=== PATIENT | female | born 1990 | race Caucasian/White ===

== ENCOUNTER 2017-03-23 10:36 | Emergency (ER) | payer MEDICAID ==
[~2017-03-23] VITALS: Ht 149.9 cm; Wt 44.8 kg
[~2017-03-23 10:36] MED LIST: DICY10CA88 PO; ESOM40CA PO; HYDR-569 PO; NITR100C6 PO; OMEP40CA37 PO; ONDA4TAB59 PO; ONDA8TAB9 PO; PHEN-873 PO
[2017-03-23 11:14] LABS: BASOPHILS % (AUTO) 0.3 % (0-1); EOSINOPHILS # (AUTO) 0.5 X10'3 (0-0.9); EOSINOPHILS % (AUTO) 4.6 % (0-6); HEMATOCRIT 41.6 % (35.0-45.0); LYMPHOCYTES # (AUTO) 1.9 X10'3 (1.1-4.8); MEAN CORPUSCULAR HEMOGLOBIN 29.2 PG (27.0-31.0); MEAN CORPUSCULAR HGB CONC 33.6 % (33.0-36.5); MEAN PLATELET VOLUME 7.7 FL (7.4-10.4); MONOCYTES # (AUTO) 0.4 X10'3 (0-0.9); MONOCYTES % (AUTO) 3.7 % (2-12); NEUTROPHILS # (AUTO) 7.8 X10'3 (1.8-7.7); NEUTROPHILS % (AUTO) 73.4 % (42-75); PLATELET COUNT 252 X10'3 (140-440); RED BLOOD COUNT 4.79 X10'6 (4.20-5.60); RED CELL DISTRIBUTION WIDTH 12.6 % (11.5-14.5); WHITE BLOOD COUNT 10.6 X10'3 (4.5-11.0)
[2017-03-23 11:22] LABS: PROTHROMBIN TIME 10.1 SECONDS (9.0-12.0)
[2017-03-23 11:23] LABS: CLARITY,URINE SLIGHTLY CLOUDY (Clear); COLOR,URINE STRAW (Yellow); GLUCOSE, URINE Negative (Neg); KETONES,URINE Negative (Neg); LEUKOCYTE ESTERASE ,URINE Negative (Neg); NITRITES, URINE Negative (Neg); OCCULT BLOOD,URINE Moderate (Neg); PH,URINE 7.5 (4.8-8.0); PROTEIN,URINE Negative (Neg); UA COLLECTION TYPE CLN CATCH MIDSTREAM; UROBILINOGEN,URINE 0.2 E.U/dL (0.2-1.0)
[2017-03-23 11:32] LABS: ALANINE AMINOTRANSFERASE 28 U/L (12-78); ALBUMIN 4.1 G/DL (3.4-5.0); ALBUMIN/GLOBULIN RATIO 1.1 (1.1-1.5); ALKALINE PHOSPHATASE 56 IU/L (46-116); ANION GAP 9 (8-16); ASPARTATE AMINO TRANSFERASE 17 U/L (10-37); BILIRUBIN,TOTAL 0.3 MG/DL (0.1-1.0); BLOOD UREA NITROGEN 7 MG/DL (7-18); BUN/CREATININE RATIO 10.6 (6.6-38.0); CALCIUM 9.1 MG/DL (8.5-10.1); CHLORIDE 106 MMOL/L (99-107); CREATININE 0.66 MG/DL (0.40-0.90); GLUCOSE 92 MG/DL (70-104); HCG SERUM QL NEGATIVE; POTASSIUM 3.6 MMOL/L (3.5-5.1); SODIUM 142 MMOL/L (135-145); TOTAL CARBON DIOXIDE 27.4 MMOL/L (24-32); TOTAL PROTEIN 7.8 G/DL (6.4-8.2); eGFR > 90 ML/MIN
[2017-03-23 11:35] LABS: RBC,URINE 0-2 /HPF (0-2); WBC,URINE NONE SEEN /HPF (0-4)
[2017-03-23 11:36] LABS: BACTERIA,URINE FEW /HPF (Neg); MUCUS STRANDS NONE SEEN /LPF (Neg); SQUAMOUS EPITHELIAL CELL,UR FEW /LPF (FEW)
[2017-03-23 11:58] VITALS: BP 108/49
== END 2017-03-23 12:00 | disposition home or self-care (01) ==
LOC: ER 10:37
DX: N93.8 Other specified abnormal uterine and vaginal bleeding (principal); F17.200 Nicotine dependence, unspecified, uncomplicated; G43.909 Migraine, unspecified, not intractable, without status migrainosus; Z91.040 Latex allergy status; Z79.899 Other long term (current) drug therapy
CPT/HCPCS: 36415; 80053; 81001; 84703; 85025; 85610; 99284

== ENCOUNTER 2017-05-20 08:46 | Emergency (ER) | payer MEDICAID ==
[~2017-05-20] VITALS: Ht 149.9 cm; Wt 44.0 kg
[2017-05-20 08:49] VITALS: BP 113/76
[2017-05-20] MEDS ORDERED: TRAM50TA2 PO (09:15)
[2017-05-20] MEDS ORDERED: CHLO473M2 PO (09:15)
[2017-05-20] MEDS ORDERED: IBUP-1984 PO (09:15)
[2017-05-20] MEDS ORDERED: ketorolac tromethamine 15mg/ml inj. IM ONE (09:20)
== END 2017-05-20 09:23 | disposition home or self-care (01) ==
LOC: ER 08:46
DX: K02.9 Dental caries, unspecified (principal); G43.909 Migraine, unspecified, not intractable, without status migrainosus; Z88.8 Allergy status to other drugs, medicaments and biological substances; Z91.040 Latex allergy status; Z79.899 Other long term (current) drug therapy
CPT/HCPCS: 99283

== ENCOUNTER 2018-01-01 13:43 | Emergency (ER) | payer MEDICAID ==
[~2018-01-01] VITALS: Ht 149.9 cm; Wt 59.0 kg
[~2018-01-01 13:43] MED LIST changes: +CHLO473M2 PO; +PHEN-786 PO; -PHEN-873 PO
[2018-01-01 15:14] LABS: BASOPHILS % (AUTO) 0.3 % (0-1); EOSINOPHILS # (AUTO) 0.2 X10'3 (0-0.9); EOSINOPHILS % (AUTO) 1.8 % (0-6); HEMATOCRIT 33.5 % (35.0-45.0); HEMOGLOBIN 11.8 g/dl (12.0-16.0); LYMPHOCYTES # (AUTO) 1.8 X10'3 (1.1-4.8); LYMPHOCYTES % (AUTO) 14.7 % (21-51); MEAN CORPUSCULAR HEMOGLOBIN 30.6 PG (27.0-31.0); MEAN CORPUSCULAR HGB CONC 35.2 % (33.0-36.5); MEAN CORPUSCULAR VOLUME 86.9 FL (78-98); MEAN PLATELET VOLUME 7.5 FL (7.4-10.4); MONOCYTES # (AUTO) 0.6 X10'3 (0-0.9); MONOCYTES % (AUTO) 5.3 % (2-12); NEUTROPHILS # (AUTO) 9.5 X10'3 (1.8-7.7); NEUTROPHILS % (AUTO) 77.9 % (42-75); PLATELET COUNT 275 X10'3 (140-440); RED BLOOD COUNT 3.85 X10'6 (4.20-5.60); RED CELL DISTRIBUTION WIDTH 11.9 % (11.5-14.5); WHITE BLOOD COUNT 12.1 X10'3 (4.5-11.0)
[2018-01-01 15:32] LABS: ALANINE AMINOTRANSFERASE 25 U/L (12-78); ALBUMIN/GLOBULIN RATIO 0.7 (1.1-1.5); ALKALINE PHOSPHATASE 78 IU/L (46-116); ANION GAP 13 (8-16); ASPARTATE AMINO TRANSFERASE 16 U/L (10-37); BILIRUBIN,TOTAL 0.2 MG/DL (0.1-1.0); BLOOD UREA NITROGEN 8 MG/DL (7-18); BUN/CREATININE RATIO 16.3 (6.6-38.0); CALCIUM 8.7 MG/DL (8.5-10.1); CHLORIDE 101 MMOL/L (99-107); CREATININE 0.49 MG/DL (0.40-0.90); GLUCOSE 92 MG/DL (70-104); SODIUM 140 MMOL/L (135-145); TOTAL CARBON DIOXIDE 26.3 MMOL/L (24-32); TOTAL PROTEIN 7.4 G/DL (6.4-8.2); eGFR > 90 ML/MIN
[2018-01-01 15:37] LABS: CLARITY,URINE CLEAR (Clear); COLOR,URINE STRAW (Yellow); GLUCOSE, URINE NEGATIVE (Neg); KETONES,URINE NEGATIVE (Neg); LEUKOCYTE ESTERASE ,URINE NEGATIVE (Neg); NITRITES, URINE NEGATIVE (Neg); OCCULT BLOOD,URINE NEGATIVE (Neg); PH,URINE 6.5 (4.8-8.0); PROTEIN,URINE NEGATIVE (Neg); UROBILINOGEN,URINE 0.2 E.U/dL (0.2-1.0)
[2018-01-01] MEDS ORDERED: magnesium oxide 400mg tablet PO ONE (15:40)
[2018-01-01] MEDS ORDERED: potassium Cl 20 mEq SR tablet PO ONE (15:40)
[2018-01-01 15:41] VITALS: BP 120/71
[2018-01-01 15:46] LABS: UA COLLECTION TYPE NON-SPECIFIED
[2018-01-01 15:56] LABS: BETA HCG,QUANTITATIVE 27937 mIU/ml
== END 2018-01-01 16:02 | disposition home or self-care (01) ==
LOC: ER 13:43
DX: O26.892 Other specified pregnancy related conditions, second trimester (principal); N89.8 Other specified noninflammatory disorders of vagina; E87.6 Hypokalemia; G43.909 Migraine, unspecified, not intractable, without status migrainosus; F31.9 Bipolar disorder, unspecified; Z3A.26 26 weeks gestation of pregnancy; Z91.040 Latex allergy status; Z88.8 Allergy status to other drugs, medicaments and biological substances
CPT/HCPCS: 36415; 76805; 80053; 81003; 84702; 85025; 86900; 86901; 99285

== ENCOUNTER 2018-08-05 09:57 | Emergency (ER) | payer OTHER, MEDICAID ==
[~2018-08-05] VITALS: Ht 149.9 cm; Wt 61.4 kg
[2018-08-05] MEDS ORDERED: normal saline 1000ML IV soln IVB ONE (10:40)
[2018-08-05] MEDS ORDERED: ondansetron/PF 4mg/2ml inj IV ONE (10:40)
[2018-08-05 11:01] LABS: BASOPHILS % (AUTO) 0.9 % (0-1); EOSINOPHILS # (AUTO) 0.3 X10'3 (0-0.9); EOSINOPHILS % (AUTO) 5.9 % (0-6); HEMATOCRIT 35.9 % (35.0-45.0); LYMPHOCYTES # (AUTO) 1.9 X10'3 (1.1-4.8); LYMPHOCYTES % (AUTO) 33.3 % (21-51); MEAN CORPUSCULAR HEMOGLOBIN 26.5 PG (27.0-31.0); MEAN CORPUSCULAR HGB CONC 33.4 g/dL (33.0-36.5); MEAN CORPUSCULAR VOLUME 79.5 FL (78-98); MEAN PLATELET VOLUME 7.2 FL (7.4-10.4); MONOCYTES # (AUTO) 0.4 X10'3 (0-0.9); MONOCYTES % (AUTO) 7.4 % (2-12); NEUTROPHILS # (AUTO) 2.9 X10'3 (1.8-7.7); NEUTROPHILS % (AUTO) 52.5 % (42-75); PLATELET COUNT 319 X10'3 (140-440); RED BLOOD COUNT 4.52 X10'6 (4.20-5.60); RED CELL DISTRIBUTION WIDTH 14.2 % (11.5-14.5); WHITE BLOOD COUNT 5.6 X10'3 (4.5-11.0)
[2018-08-05 11:04] LABS: CLARITY,URINE CLOUDY (Clear); COLOR,URINE YELLOW (Yellow); GLUCOSE, URINE NEGATIVE (Neg); KETONES,URINE NEGATIVE (Neg); LEUKOCYTE ESTERASE ,URINE NEGATIVE (Neg); NITRITES, URINE NEGATIVE (Neg); OCCULT BLOOD,URINE TRACE-INTACT (Neg); PH,URINE 5.5 (4.8-8.0); PROTEIN,URINE NEGATIVE (Neg); UA COLLECTION TYPE CLN CATCH MIDSTREAM; UROBILINOGEN,URINE 0.2 E.U/dL (0.2-1.0)
[2018-08-05 11:09] LABS: BACTERIA,URINE FEW /HPF (Neg); MUCUS STRANDS FEW /LPF (Neg); RBC,URINE 0-2 /HPF (0-2); SQUAMOUS EPITHELIAL CELL,UR MANY /LPF (FEW); WBC,URINE 0-4 /HPF (0-4)
[2018-08-05 11:18] LABS: ALANINE AMINOTRANSFERASE 54 U/L (12-78); ALBUMIN 3.4 G/DL (3.4-5.0); ALBUMIN/GLOBULIN RATIO 0.8 (1.1-1.5); ALKALINE PHOSPHATASE 89 IU/L (46-116); ANION GAP 8 (8-16); ASPARTATE AMINO TRANSFERASE 24 U/L (10-37); BILIRUBIN,TOTAL 0.2 MG/DL (0.1-1.0); BLOOD UREA NITROGEN 5 MG/DL (7-18); BUN/CREATININE RATIO 7.6 (6.6-38.0); CALCIUM 8.5 MG/DL (8.5-10.1); CHLORIDE 106 MMOL/L (99-107); CREATININE 0.66 MG/DL (0.40-0.90); GLUCOSE 90 MG/DL (70-104); LIPASE 168 U/L (73-393); POTASSIUM 3.2 MMOL/L (3.5-5.1); SODIUM 140 MMOL/L (135-145); TOTAL CARBON DIOXIDE 25.7 MMOL/L (24-32); TOTAL PROTEIN 7.7 G/DL (6.4-8.2); eGFR > 90 ML/MIN
[2018-08-05] MEDS ORDERED: potassium Cl oral solution 20 MEQ/15 ML PO ONE (11:25)
[2018-08-05 11:26] LABS: URINE HCG NEGATIVE (NEG)
[2018-08-05 13:13] VITALS: BP 124/43
== END 2018-08-05 13:14 | disposition home or self-care (01) ==
LOC: ER 09:58
DX: E86.0 Dehydration (principal); R11.2 Nausea with vomiting, unspecified; R19.7 Diarrhea, unspecified; G43.909 Migraine, unspecified, not intractable, without status migrainosus; Z91.040 Latex allergy status; Z88.8 Allergy status to other drugs, medicaments and biological substances; Z79.899 Other long term (current) drug therapy
CPT/HCPCS: 36415; 74176; 80053; 81001; 81025; 83690; 85025; 96361; 96374; 99284; J2405; J7030

== ENCOUNTER 2018-10-13 21:16 | Emergency (ER) | payer MEDICAID, OTHER ==
[~2018-10-13] VITALS: Ht 149.9 cm; Wt 56.0 kg
[~2018-10-13 21:16] MED LIST changes: +OMEP40CA13 PO; -OMEP40CA37 PO
[2018-10-13 21:29] VITALS: BP 103/61
[2018-10-13] MEDS ORDERED: cephalexin 250mg capsule PO ONE (23:10)
[2018-10-13] MEDS ORDERED: sulfamethoxazole/trimethoprim DS (800/160mg) tablet PO ONE (23:10)
--- NOTE | 2018-10-13 23:30 | NUR ---
PT DRESSING DONE BY JEFF SMITH PER ANA RUANO ORDERS,PT DENIES ANY QUESTION OR CONCERN.PT SAID SHE IS FEELING LOT BETTER THAN BEFORE.
[2018-10-13] MEDS ORDERED: CLIN-96 PO (23:51)
[2018-10-13] MEDS ORDERED: AMOX-422 PO (23:51)
== END 2018-10-14 00:03 | disposition home or self-care (01) ==
LOC: ER 21:17
DX: N76.4 Abscess of vulva (principal); G43.909 Migraine, unspecified, not intractable, without status migrainosus; Z79.899 Other long term (current) drug therapy; Z91.040 Latex allergy status; Z88.8 Allergy status to other drugs, medicaments and biological substances
CPT/HCPCS: 56405; 99284

== ENCOUNTER 2019-03-16 12:00 | Emergency (ER) | payer MEDICAID ==
[~2019-03-16] VITALS: Ht 149.9 cm; Wt 59.1 kg
[~2019-03-16 12:00] MED LIST changes: +CLIN-90 PO
[2019-03-16 12:02] VITALS: BP 120/72
[2019-03-16] MEDS ORDERED: BENZ-16 PO (12:10)
[2019-03-16] MEDS ORDERED: AZIT250T PO (12:10)
== END 2019-03-16 12:43 | disposition home or self-care (01) ==
LOC: ER 12:01
DX: J06.9 Acute upper respiratory infection, unspecified (principal); G43.909 Migraine, unspecified, not intractable, without status migrainosus; Z91.040 Latex allergy status; Z88.8 Allergy status to other drugs, medicaments and biological substances; Z79.899 Other long term (current) drug therapy
CPT/HCPCS: 99283

== ENCOUNTER 2019-04-07 07:06 | Emergency (ER) | payer MEDICAID ==
[~2019-04-07] VITALS: Ht 149.9 cm; Wt 59.1 kg
[~2019-04-07 07:06] MED LIST changes: +AZIT250T PO; +BENZ-16 PO
[2019-04-07 07:11] VITALS: BP 130/46
[2019-04-07 07:45] LABS: BASOPHILS # (AUTO) 0.1 X10'3 (0-0.2); BASOPHILS % (AUTO) 0.8 % (0-1); EOSINOPHILS # (AUTO) 0.5 X10'3 (0-0.9); EOSINOPHILS % (AUTO) 6.6 % (0-6); HEMATOCRIT 37.2 % (35.0-45.0); HEMOGLOBIN 12.6 g/dl (12.0-16.0); LYMPHOCYTES # (AUTO) 2.2 X10'3 (1.1-4.8); LYMPHOCYTES % (AUTO) 31.4 % (21-51); MEAN CORPUSCULAR HEMOGLOBIN 27.6 PG (27.0-31.0); MEAN CORPUSCULAR VOLUME 81.3 FL (78-98); MEAN PLATELET VOLUME 7.2 FL (7.4-10.4); MONOCYTES # (AUTO) 0.4 X10'3 (0-0.9); MONOCYTES % (AUTO) 5.6 % (2-12); NEUTROPHILS # (AUTO) 3.9 X10'3 (1.8-7.7); NEUTROPHILS % (AUTO) 55.6 % (42-75); PLATELET COUNT 321 X10'3 (140-440); RED BLOOD COUNT 4.58 X10'6 (4.20-5.60)
[2019-04-07 08:04] LABS: ALANINE AMINOTRANSFERASE 29 U/L (12-78); ALBUMIN 3.7 G/DL (3.4-5.0); ALKALINE PHOSPHATASE 96 IU/L (46-116); ANION GAP 9 (8-16); ASPARTATE AMINO TRANSFERASE 14 U/L (10-37); BILIRUBIN,TOTAL 0.3 MG/DL (0.1-1.0); BLOOD UREA NITROGEN 14 MG/DL (7-18); BUN/CREATININE RATIO 17.7 (6.6-38.0); CALCIUM 8.9 MG/DL (8.5-10.1); CHLORIDE 107 MMOL/L (99-107); CREATININE 0.79 MG/DL (0.40-0.90); GLUCOSE 85 MG/DL (70-104); POTASSIUM 3.9 MMOL/L (3.5-5.1); SODIUM 142 MMOL/L (135-145); TOTAL CARBON DIOXIDE 25.8 MMOL/L (24-32); TOTAL PROTEIN 7.5 G/DL (6.4-8.2); eGFR 87 ML/MIN
== END 2019-04-07 08:43 | disposition home or self-care (01) ==
LOC: ER 07:07
DX: R07.89 Other chest pain (principal); R00.2 Palpitations; G43.909 Migraine, unspecified, not intractable, without status migrainosus; I25.2 Old myocardial infarction; F31.9 Bipolar disorder, unspecified; F10.99 Alcohol use, unspecified with unspecified alcohol-induced disorder; Y90.9 Presence of alcohol in blood, level not specified; Z91.040 Latex allergy status; Z88.8 Allergy status to other drugs, medicaments and biological substances; Z79.899 Other long term (current) drug therapy
CPT/HCPCS: 36415; 80053; 84484; 85025; 93005; 99284

== ENCOUNTER 2019-06-02 15:34 | Emergency (ER) | payer MEDICAID ==
[~2019-06-02] VITALS: Ht 149.9 cm; Wt 62.3 kg
[~2019-06-02 15:34] MED LIST changes: -BENZ-16 PO; -CLIN-90 PO; +CLIN-97 PO
[2019-06-02 15:35] VITALS: BP 115/73
--- NOTE | 2019-06-02 18:11 | NUR ---
Lab called regarding COVID-19 swab and need to send to public health per Dr. Gilliam.
== END 2019-06-02 16:33 | disposition home or self-care (01) ==
LOC: ER 15:35
DX: J06.9 Acute upper respiratory infection, unspecified (principal); Z20.828 Contact with and (suspected) exposure to other viral communicable diseases; G43.909 Migraine, unspecified, not intractable, without status migrainosus; I25.2 Old myocardial infarction; Z79.899 Other long term (current) drug therapy; Z91.040 Latex allergy status; Z88.8 Allergy status to other drugs, medicaments and biological substances
CPT/HCPCS: 36415; 87502; 87503; 87635; 99283

== ENCOUNTER 2021-05-10 13:19 | Emergency (ER) | payer MEDICAID ==
[~2021-05-10] VITALS: Ht 149.9 cm; Wt 55.0 kg
[~2021-05-10 13:19] MED LIST changes: -OMEP40CA13 PO; +OMEP40CA21 PO
[2021-05-10 13:28] VITALS: BP 109/60
[2021-05-10] MEDS ORDERED: ketorolac tromethamine 15mg/ml inj. IM ONE (15:00)
[2021-05-10] MEDS ORDERED: acetaminophen 325mg tablet PO ONE (15:00)
== END 2021-05-10 15:48 | disposition home or self-care (01) ==
LOC: ER 13:19
DX: M79.675 Pain in left toe(s) (principal); G43.909 Migraine, unspecified, not intractable, without status migrainosus; I25.2 Old myocardial infarction; F31.9 Bipolar disorder, unspecified; Z72.89 Other problems related to lifestyle; Z91.040 Latex allergy status; Z88.8 Allergy status to other drugs, medicaments and biological substances; Z79.2 Long term (current) use of antibiotics; Z79.899 Other long term (current) drug therapy
CPT/HCPCS: 73660; 96372; 99283; J1885

== ENCOUNTER 2022-03-16 01:23 | Emergency (ER) | payer MEDICAID | END 2022-03-16 01:36 | disposition left against medical advice (07) | LOC: ER 01:23 | DX: Z00.8 Encounter for other general examination (principal); Z53.21 Procedure and treatment not carried out due to patient leaving prior to being seen by health care provider ==

== ENCOUNTER 2023-11-14 10:47 | Emergency (ER) | payer MEDICAID, OTHER ==
[~2023-11-14] VITALS: Ht 149.9 cm; Wt 45.5 kg
[2023-11-14 12:00] LABS: BASOPHILS # (AUTO) 0.1 X10'3 (0-0.2); BASOPHILS % (AUTO) 0.4 % (0-1); EOSINOPHILS # (AUTO) 0.2 X10'3 (0-0.9); EOSINOPHILS % (AUTO) 1.2 % (0-6); HEMATOCRIT 40.1 % (35.0-45.0); HEMOGLOBIN 13.4 g/dl (12.0-16.0); LYMPHOCYTES # (AUTO) 1.1 X10'3 (1.1-4.8); LYMPHOCYTES % (AUTO) 7.3 % (21-51); MEAN CORPUSCULAR HEMOGLOBIN 28.2 PG (27.0-31.0); MEAN CORPUSCULAR HGB CONC 33.3 g/dL (33.0-36.5); MEAN CORPUSCULAR VOLUME 84.6 FL (78-98); MEAN PLATELET VOLUME 7.6 FL (7.4-10.4); MONOCYTES # (AUTO) 0.5 X10'3 (0-0.9); MONOCYTES % (AUTO) 3.3 % (2-12); NEUTROPHILS # (AUTO) 12.8 X10'3 (1.8-7.7); NEUTROPHILS % (AUTO) 87.8 % (42-75); PLATELET COUNT 387 X10'3 (140-440); RED BLOOD COUNT 4.74 X10'6 (4.20-5.60); RED CELL DISTRIBUTION WIDTH 12.6 % (11.5-14.5); WHITE BLOOD COUNT 14.5 X10'3 (4.5-11.0)
[2023-11-14 12:16] LABS: ALANINE AMINOTRANSFERASE 23 U/L (12-78); ALBUMIN 4.3 G/DL (3.4-5.0); ALBUMIN/GLOBULIN RATIO 1.2 (1.1-1.5); ALKALINE PHOSPHATASE 52 IU/L (46-116); ANION GAP 9 (8-16); ASPARTATE AMINO TRANSFERASE 18 U/L (10-37); BILIRUBIN,TOTAL 0.6 MG/DL (0.1-1.0); BLOOD UREA NITROGEN 4 MG/DL (7-18); BUN/CREATININE RATIO 5.6 (10.0-20.0); CALCIUM 9.4 MG/DL (8.5-10.1); CHLORIDE 104 MMOL/L (99-107); CREATININE 0.71 MG/DL (0.40-0.90); GLUCOSE 100 MG/DL (70-104); LIPASE 28 U/L (16-77); POTASSIUM 3.7 MMOL/L (3.5-5.1); SODIUM 139 MMOL/L (135-145); TOTAL CARBON DIOXIDE 26.4 MMOL/L (24-32); eCRCL 77 ML/MIN; eGFR > 90 ML/MIN
[2023-11-14 12:31] LABS: URINE HCG NEGATIVE (NEG)
[2023-11-14 12:33] LABS: BILIRUBIN,URINE NEGATIVE (Neg); CLARITY,URINE CLOUDY (Clear); COLOR,URINE YELLOW (Yellow); GLUCOSE, URINE NEGATIVE (Neg); KETONES,URINE 15 mg/dl (Neg); LEUKOCYTE ESTERASE ,URINE NEGATIVE (Neg); NITRITES, URINE NEGATIVE (Neg); OCCULT BLOOD,URINE LARGE (Neg); PH,URINE 7.5 (4.8-8.0); PROTEIN,URINE 100 mg/dl (Neg)
[2023-11-14 12:38] LABS: UA COLLECTION TYPE CLN CATCH MIDSTREAM
[2023-11-14 12:39] LABS: MUCUS STRANDS FEW /LPF (Neg); RBC,URINE TNTC /HPF (0-2); SQUAMOUS EPITHELIAL CELL,UR MANY /LPF (FEW)
[2023-11-14 12:40] LABS: BACTERIA,URINE 1+ /HPF (Neg)
[2023-11-14] MEDS: metoclopramide 5 mg/ml inj IV ONE (13:47)
[2023-11-14] MEDS: normal saline 1000ml 1,000 ML IV ONE (13:47)
[2023-11-14] MEDS: ketorolac trometh 30MG/ML vial 30 MG/ML VIAL IV ONE (13:47)
[2023-11-14] MEDS ORDERED: iohexol 300mg/ml 100ml inj. ONE (14:58)
[2023-11-14] MEDS: HYDROcodone/acetaminophen 5mg/325mg tablet PO ONE (15:55)
[2023-11-14 16:06] VITALS: BP 120/60; PULSE 102; RESP 16; TEMP 97.5; O2SAT 99
== END 2023-11-14 16:15 | disposition home or self-care (01) ==
LOC: ER 10:48
DX: R10.2 Pelvic and perineal pain (principal); G43.909 Migraine, unspecified, not intractable, without status migrainosus; F31.9 Bipolar disorder, unspecified; Z91.040 Latex allergy status; Z88.8 Allergy status to other drugs, medicaments and biological substances; Z79.2 Long term (current) use of antibiotics; Z79.899 Other long term (current) drug therapy
CPT/HCPCS: 36415; 74177; 76856; 80053; 81001; 81025; 83690; 85025; 93976; 96361; 96374; 96375; 99285; J1885; J2765; J7030; Q9967

== ENCOUNTER 2024-11-09 15:58 | Emergency (ER) | payer MEDICAID ==
[~2024-11-09] VITALS: Ht 149.9 cm; Wt 51.2 kg
[~2024-11-09 15:58] MED LIST changes: +CLIN-224 PO; -CLIN-97 PO
[2024-11-09 16:04] VITALS: BP 144/81; TEMP 98.3
--- NOTE | 2024-11-09 16:47 | Physician Documentation ---
History of Present Illness ~ Chief Complaint: Cough Stated Complaint: MULTIPLE MED COMPLAINTS Time Seen by MD: 16:47 Primary Medical Doctor: dr segura, DR RILEY HPI This is a 34-year-old female who presents to the emergency department due to a cough that started five days ago and has been very persistent in nature. She reports nonstop coughing, keeping her awake, making her very uncomfortable. She does incidentally also note that she is status post hysterectomy for cervical cancer. Reports both ovaries and all of the uterus and cervix including part of the vaginal vault were removed by Dr. Raines in [place]. She has had issues with her bowels and bladder ever since the surgery. Painful frequent urination, and describes soft stools but feels that she is not eliminating quite normally. No fevers, chills, nausea, vomiting. Medication Reconciliation Allergies: Coded Allergies: latex (Unverified Allergy, Unknown, 12/10/13) pseudoephedrine HCl (Unverified Allergy, Unknown, 12/10/13) Scheduled Azithromycin (Zithromax), 1 DOSPAK PO UD Benzonatate* (Benzonatate*), 1-2 CAP PO Q6H Chlorhexidine Gluconate (Chlorhexidine Gluconate), 15 ML PO BID Clindamycin HCL* (Clindamycin HCL*), 1 CAP PO Q6H Dicyclomine Hcl* (Bentyl*), 20 MG PO Q4H, (Reported) Esomeprazole Mag Trihydrate* (Nexium*), 40 MG PO DAILY, (Reported) Guaifenesin (Mucinex), 1 TAB PO Q12H Hydrocodone Bit/Acetaminophen ([place] 5-325 Tablet), 1 EACH PO Q6H PRN PAIN, (Reported) Nitrofurantoin Monohyd/M-Cryst (Macrobid 100 mg Capsule), 1 CAP PO BID Omeprazole (Prilosec), 1 CAP PO BID Ondansetron Hcl (Ondansetron Hcl), 4 MG PO Q8H PRN N/V Prednisone* (Prednisone*), 2 TAB PO DAILY Sulfamethoxazole/Trimethoprim (Bactrim Ds Tablet), 1 TAB PO Q12H Scheduled PRN Ondansetron (Zofran Odt), 8 MG PO QID PRN for nausea/vomiting Phenazopyridine Hcl (Pyridium tablet), 1 TAB PO Q8H PRN for pain Phenazopyridine Hcl (Pyridium tablet), 2 TAB PO Q8H PRN for urinary burning Past Medical History Past Medical History: Migraine, Myocardial Infarction, Bipolar Past Surgical History: no surgical history Alcohol Use: Occasionally Drug Use: none Lives with: S/O, Family Lives In: Home Occupation: employed Review of Systems ROS As stated above in the HPI, otherwise all systems are reviewed and negative. Physical Exam Vital Signs: Temperature: 98.3, Source: Temporal, Heart Rate: 120, Respiratory Rate: 18, BP: 144/81, Pulse Oximetry: 99, Weight: 51.200 Oxygen Flow Rate: 0 Physical Exam General: Alert, no apparent distress. Neck: Full range of motion. Respiratory: Moderate wheezing. No distress. Frequent spasmodic cough. Chest: No accessory muscle use. Cardiovascular: Regular rate and rhythm, no murmurs. Gastrointestinal: Soft, nontender, nondistended. Bowels sounds present. Extremities: Normal range of motion, no deformity. Neurologic: Oriented x4. Psychiatric: Normal mood and affect. Skin: Normal color, warm and dry. No edema, no ecchymosis. Progress Results/Orders Results/Orders Orders - LEYDI PFEIFFER [employer] Svn Treatment (11/09/24 16:59) Cult Urine + [place] (11/09/24 17:32) Completed Orders - LEYDI PFEIFFER [employer]IST Ipratropium/Albuterol Nebule (Ipratrop/A (11/09/24 17:00) Ua W/Microscopic, Cult If Ind (11/09/24 17:07) Sulfamethox/Trimetho. Ds Tab (Septra Ds (11/09/24 17:55) Ondansetron Disint. Tablet (Zofran Odt T (11/09/24 17:55) Naproxen Tablet (Naprosyn Tablet) (11/09/24 17:55) Prednisone Tablet (Prednisone Tablet) (11/09/24 17:55) Medications Received in ER Medications (Trade) Dose Ordered Sig/Niki Route PRN Reason Start Time Stop Time Status Last Admin Dose Admin (ipratrop/ albuterol 0.5-3(2.5) MG/3ml nebule) 3 ml ONCE ONCE NEB 11/09/24 17:00 11/09/24 17:01 DC 11/09/24 17:04 3 ML (Septra DS tab) 1 tab ONCE ONCE PO 11/09/24 17:55 11/09/24 17:56 DC 11/09/24 18:05 1 TAB (Zofran ODT tablet) 4 mg ONCE ONCE PO 11/09/24 17:55 11/09/24 17:56 DC 11/09/24 18:05 4 MG (Naprosyn tablet) 500 mg ONCE ONCE PO 11/09/24 17:55 11/09/24 17:56 DC 11/09/24 18:06 500 MG (predniSONE tablet) 40 mg ONCE ONCE PO 11/09/24 17:55 11/09/24 17:56 DC 11/09/24 18:05 40 MG Vital Signs 11/09/24 11/09/24 11/09/24 11/09/24 16:04 17:05 17:12 17:16 Temp 98.3 Pulse 120 102 100 Resp 18 18 18 16 B/P (MAP) 144/81 Pulse Ox 99 98 98 O2 Delivery Room Air* Room Air* O2 Flow Rate 0 0 0 FiO2 21 21 Laboratory Tests Test 11/09/24 16:37 11/09/24 17:07 White Blood Count 10.6 Red Blood Count 4.98 Hemoglobin 13.8 Hematocrit 40.5 Mean Corpuscular Volume 81.3 Mean Corpuscular Hemoglobin 27.7 Mean Corpuscular Hemoglobin Concent 34.0 Red Cell Distribution Width 12.8 Platelet Count 282 Mean Platelet Volume 7.7 Neutrophils (%) (Auto) 72.8 Lymphocytes (%) (Auto) 19.3 L Monocytes (%) (Auto) 4.7 Eosinophils (%) (Auto) 2.7 Basophils (%) (Auto) 0.5 Neutrophils # (Auto) 7.7 Lymphocytes # (Auto) 2.0 Monocytes # (Auto) 0.5 Eosinophils # (Auto) 0.3 Basophils # (Auto) 0.1 CBC Comment Sodium Level 137 Potassium Level 3.7 Chloride Level 103 Carbon Dioxide Level 24.7 Anion Gap 9 Blood Urea Nitrogen 4 L Creatinine 0.68 Estimated GFR/1.73 m2 > 90 BUN/Creatinine Ratio 5.9 L Glucose Level 113 H Calcium Level 9.6 Albumin 4.1 Chemistry Comments Urine Specimen Description Cln catch midstream Urine Color Yellow Urine Clarity Clear Urine pH 6.5 Urine Specific [place] <=1.005 Urine Protein Negative Urine Glucose (UA) Negative Urine Ketones Negative Urine Occult Blood Negative Urine Nitrite Negative Urine Bilirubin Negative Urine Urobilinogen 0.2 Urine Leukocyte Esterase Trace H Urine RBC None seen Urine WBC 5-10 H Urine Squamous Epithelial Cells Few Urine Bacteria None seen Urine Culture Indicated Indicated Volume Urine Centrifuged 10 ml Urine Comment EKG/XRAY/CT/US/VASC/MRI Chest X-Ray : Additional Comments [facility] [address] [facility] [address] DIAGNOSTIC RADIOLOGY Patient: ZORAIDA GIBSON Medical Record: [id number] [facility] : 1990, Age: 34 Sex: Female Location: ER Patient Status: [facility] ER Service Date/Time: 11/09/24/ 1621 Ordering Physician: ZITA DUBOSE Exam: CHEST,TWO VIEWS DI CHEST,TWO VIEWS CLINICAL HISTORY: Cough COMPARISON: None TECHNIQUE: Frontal and lateral view of the chest was obtained FINDINGS: Lines and Tubes: None Lungs: No focal consolidation. Pleura: No effusion. No pneumothorax. Cardiomediastinal contours: Unremarkable Bones: No acute osseous abnormality. IMPRESSION: No acute cardiopulmonary disease. Electronically Signed by:LINDSEY ARRINGTON DO Date & Time: 11/09/24 1731 Dictated by: LINDSEY ARRINGTON DO Dictation date and time: 11/09/24 1645 Primary Care Provider: NO PRIMARY CARE PROVIDER cc: ZITA DUBOSE ~ Medical Decision Making Differential Dx:Considerations: Include: Allergic rhinitis, Influenza, Otitis media, Peritonsillar abscess, Pharyngitis-Diphtheria, Pharyngitis-Streptoccal, Pharyngitis-Viral, Pneumonia, Pnuemonitis, Sinusitis, URI Differential Diagnosis Probable UTI per urinalysis. Sent Bactrim DS po BID x 3 days, Azo. Needs to see PCP for nurse obgyn followup due to persisting issues with pelvic pain and dysuria after hysterectomy. CXR done for persistent spasmodic cough and hx of recurrent PNA. No PNA found. Former smoker with significant tobacco use hx. Treating as bronchitis with prednisone, albuterol inhaler. Is to use mucinex and also prn tessalon perles. Is to return if worse. Departure Time of Disposition: 17:54 Disposition: HOME / SELF CARE / HOMELESS Impression: Primary Impression: Acute urinary tract infection Additional Impression: Acute bronchitis Discharge Instructions: Urinary Tract Infection, Adult Additional Instructions: No pneumonia on CXR. Please see your primary care soon and request a referral to gynecology due to your ongoing pelvic pain and urinary issues since your hysterectomy. Take the prednisone as prescribed for lung inflammation and cough. Use the tessalon perles as needed for cough. Use your albuterol inhaler 1-2 puffs every 4-6 hrs as needed for wheezing. Use the azo as needed for urinary pain. Take the Bactrim for urinary tract infection. Take the mucinex for cough-will help thin secretions and make cough more productive. Return if worse. Referrals: NO PRIMARY CARE PROVIDER (PCP) Prescriptions Guaifenesin (Mucinex) 1,200 Mg Tbbp.12hr 1 TAB PO Q12H for cough for 15 Days, #30 TAB 0 Refills Prov: LEYDI PFEIFFER NP 11/09/24 Benzonatate* (Benzonatate*) 100 Mg Capsule 1-2 CAP PO Q6H, #30 CAP Prov: LEYDI PFEIFFER NP 11/09/24 Phenazopyridine Hcl (Pyridium tablet) 100 Mg Tablet 2 TAB PO Q8H PRN for urinary burning, #20 TAB Prov: LEYDI PFEIFFER NP 11/09/24 Sulfamethoxazole/Trimethoprim (Bactrim Ds Tablet) 800 Mg-160 Mg Tablet 1 TAB PO Q12H for 3 Days, #6 TAB Prov: LEYDI PFEIFFER NP 11/09/24 Prednisone* (Prednisone*) 20 Mg Tablet 2 TAB PO DAILY, #10 TAB Prov: LEYDI PFEIFFER NP 11/09/24 Education Educated: Patient Educated regarding: diagnosis, treatment, prognosis, need for follow up Signature Scribe Signature: x Attestation: The note accurately reflects work and decisions made by me.Leydi Conway NP 11/09/24 17:18 LEYDI PFEIFFER NP Nov 09, 2024 16:47
[2024-11-09 16:53] LABS: MEAN PLATELET VOLUME 7.7 FL (7.4-10.4); RED CELL DISTRIBUTION WIDTH 12.8 % (11.5-14.5)
[2024-11-09] MEDS: ipratropium/albuterol 3ml nebule NEB ONE (17:04)
[2024-11-09 17:05] VITALS: PULSE 102; RESP 18; O2SAT 98
[2024-11-09 17:12] VITALS: PULSE 100; RESP 18; O2SAT 98
[2024-11-09 17:16] VITALS: RESP 16
[2024-11-09 17:21] LABS: LEUKOCYTE ESTERASE ,URINE TRACE (Neg); NITRITES, URINE NEGATIVE (Neg); OCCULT BLOOD,URINE NEGATIVE (Neg)
[2024-11-09 17:24] LABS: UA COLLECTION TYPE CLN CATCH MIDSTREAM
[2024-11-09 17:29] LABS: SQUAMOUS EPITHELIAL CELL,UR FEW /LPF (FEW)
[2024-11-09 17:30] LABS: CREATININE 0.68 MG/DL (0.40-0.90); TOTAL CARBON DIOXIDE 24.7 MMOL/L (24-32); eCRCL 80 ML/MIN; eGFR > 90 ML/MIN
--- NOTE | 2024-11-09 17:33 | RADIOLOGY REPORT ---
DI CHEST,TWO VIEWS CLINICAL HISTORY: Cough COMPARISON: None TECHNIQUE: Frontal and lateral view of the chest was obtained FINDINGS: Lines and Tubes: None Lungs: No focal consolidation. Pleura: No effusion. No pneumothorax. Cardiomediastinal contours: Unremarkable Bones: No acute osseous abnormality. IMPRESSION: No acute cardiopulmonary disease.
[2024-11-09] MEDS ORDERED: BENZ-38 PO (17:57)
[2024-11-09] MEDS ORDERED: SULF1TAB49 PO (17:57)
[2024-11-09] MEDS ORDERED: PRED20TA PO (17:57)
[2024-11-09] MEDS ORDERED: PHEN-786 PO (17:57)
[2024-11-09] MEDS ORDERED: GUAI120015 PO (17:57)
[2024-11-09] MEDS: ondansetron 4mg rapidly disintigrating tab PO ONE (18:05)
[2024-11-09] MEDS: sulfamethoxazole/trimethoprim DS (800/160mg) tablet PO ONE (18:05)
== END 2024-11-09 18:36 | disposition home or self-care (01) ==
LOC: ER 15:59
DX: J20.9 Acute bronchitis, unspecified (principal); N39.0 Urinary tract infection, site not specified; I25.2 Old myocardial infarction; F31.9 Bipolar disorder, unspecified; G43.909 Migraine, unspecified, not intractable, without status migrainosus; Z91.040 Latex allergy status; Z88.8 Allergy status to other drugs, medicaments and biological substances; Z85.41 Personal history of malignant neoplasm of cervix uteri; Z90.710 Acquired absence of both cervix and uterus; Z90.722 Acquired absence of ovaries, bilateral; Z79.899 Other long term (current) drug therapy; Z72.89 Other problems related to lifestyle
CPT/HCPCS: 36415; 71046; 80048; 81001; 85025; 87088; 94640; 99284; J7512; 94760

== ENCOUNTER 2024-11-17 12:54 | Emergency (ER) | payer MEDICAID ==
[~2024-11-17] VITALS: Ht 149.9 cm; Wt 39.2 kg
[~2024-11-17 12:54] MED LIST changes: +BENZ-38 PO; +GUAI120015 PO; +PRED20TA PO
[2024-11-17 12:57] VITALS: BP 112/76; PULSE 112; O2SAT 99
--- NOTE | 2024-11-17 13:10 | Physician Documentation ---
History of Present Illness ~ Chief Complaint: Cold, cough & congestion Stated Complaint: FLU SYMPTOMS Time Seen by MD: 13:41 Primary Medical Doctor: dr segura, DR RILEY HPI 34-year-old female presents to the ED with a complaint ongoing bronchitis symptoms. She says that she was diagnosed with bronchitis one week ago and now believe has developed pneumonia. Patient states she has not been able to keep much food down over the last 5-6 days and states she has been able to stay hydrated that has had significant fever around 103-105 degrees F over the last week or so. She is very concerned about her illness mostly because she has a baby from the NICU coming home soon and also states she has another terminally ill child. Patient states she took Tylenol a 1000 mg 2 hours ago. She states she has been taking ibuprofen about 200-400 mg at a time. She states she feels body achy and feverish with cough and nausea. She has no other concern or complaint at this time. She denies any abdominal pain or diarrhea. Or chest pain or shortness of breath. Medication Reconciliation Allergies: Coded Allergies: latex (Unverified Allergy, Unknown, 12/10/13) pseudoephedrine HCl (Unverified Allergy, Unknown, 12/10/13) Scheduled Azithromycin (Zithromax), 1 DOSPAK PO UD Azithromycin (Zithromax), 2 TAB PO DAILY Benzonatate* (Benzonatate*), 1-2 CAP PO Q6H Chlorhexidine Gluconate (Chlorhexidine Gluconate), 15 ML PO BID Clindamycin HCL* (Clindamycin HCL*), 1 CAP PO Q6H Dicyclomine Hcl* (Bentyl*), 20 MG PO Q4H, (Reported) Esomeprazole Mag Trihydrate* (Nexium*), 40 MG PO DAILY, (Reported) Guaifenesin (Mucinex), 1 TAB PO Q12H Hydrocodone Bit/Acetaminophen ([place] 5-325 Tablet), 1 EACH PO Q6H PRN PAIN, (Reported) Ibuprofen (Ibuprofen), 1 TAB PO Q8H Nitrofurantoin Monohyd/M-Cryst (Macrobid 100 mg Capsule), 1 CAP PO BID Omeprazole (Prilosec), 1 CAP PO BID Ondansetron Hcl (Ondansetron Hcl), 4 MG PO Q8H PRN N/V Prednisone* (Prednisone*), 2 TAB PO DAILY Scheduled PRN Ondansetron (Zofran Odt), 8 MG PO QID PRN for nausea/vomiting Phenazopyridine Hcl (Pyridium tablet), 1 TAB PO Q8H PRN for pain Phenazopyridine Hcl (Pyridium tablet), 2 TAB PO Q8H PRN for urinary burning Discontinued Medications Sulfamethoxazole/Trimethoprim (Bactrim Ds Tablet), 1 TAB PO Q12H Discontinued Reason: Auto Discontinued Past Medical History Past Medical History: Migraine, Myocardial Infarction, Bipolar Past Surgical History: no surgical history Alcohol Use: Occasionally Drug Use: none Lives with: S/O, Family Lives In: Home Occupation: employed Review of Systems All Other Systems at this time: Reviewed and Negative Constitutional: Denies: chills, fever, weakness Eyes: Denies: pain, blurred vision ENT: Denies: ear pain, nose pain, throat pain, mouth pain Respiratory: Denies: cough, shortness of breath Cardiovascular: Denies: chest pain, palpitations Gastrointestinal: Denies: abdominal pain, nausea, vomiting Genitourinary: Denies: burning, dysuria Female Genitalia: Denies: vaginal discharge, pelvic pain Neurological: Denies: headache, dizziness Musculoskeletal: Denies: pain, swelling Integumentary: Denies: rash, lesions Allergic/Immunologic: Denies: hives, itching Hematologic/Lymphatic: Denies: no symptoms reported Psychiatric: Denies: depression, anxiety Physical Exam Vital Signs: Temperature: 100.0, Source: Oral, Heart Rate: 112, Respiratory Rate: 16, BP: 112/76, Pulse Oximetry: 99, Weight: 39.200 Oxygen Flow Rate: 0 Physical Exam General: Awake and Alert, no acute distress. HEENT: Conjunctiva pink, Sclera clear, Mucus Membranes moist. Neck: Supple without masses and tenderness. Resp: Unlabored. Patient on exam does have coarse breath sounds of the left lower lung. Heart: Regular Rate and rhythm, normal S1 and S2 without murmur, rub or gallop. Abdomen: Soft and non tender no organomegaly Extremities: No cyanosis,clubbing or edema. Skin: Warm and Dry. Progress Results/Orders Results/Orders Orders - JERRICA ENGEL Covid19 Binax Poc Result Entry (11/17/24 14:17) Completed Orders - JERRICA ENGEL Ondansetron Disint. Tablet (Zofran Odt T (11/17/24 14:21) Ibuprofen Tablet (Motrin Tablet) (11/17/24 14:21) Acetaminophen 325mg Tablet (Tylenol Tabl (11/17/24 14:21) Cbc/Diff (11/17/24 14:24) BMP (11/17/24 14:24) Azithromycin Tablet (Zithromax Tablet) (11/17/24 15:21) Medications Received in ER Medications (Trade) Dose Ordered Sig/Niki Route PRN Reason Start Time Stop Time Status Last Admin Dose Admin (Zofran ODT tablet) 8 mg ONCE STAT PO 11/17/24 14:21 11/17/24 14:25 DC 11/17/24 14:35 8 MG (Motrin tablet) 800 mg ONCE STAT PO 11/17/24 14:21 11/17/24 14:25 DC 11/17/24 14:35 800 MG (Zithromax tablet) 500 mg ONCE STAT PO 11/17/24 15:21 11/17/24 15:34 DC 11/17/24 15:40 500 MG Vital Signs 11/17/24 11/17/24 12:57 15:41 Temp 100.0 97.8 Pulse 112 Resp 16 B/P (MAP) 112/76 Pulse Ox 99 O2 Flow Rate 0 Laboratory Tests Test 11/17/24 14:30 11/17/24 14:39 White Blood Count 17.1 H Red Blood Count 4.51 Hemoglobin 12.3 Hematocrit 36.7 Mean Corpuscular Volume 81.4 Mean Corpuscular Hemoglobin 27.4 Mean Corpuscular Hemoglobin Concent 33.6 Red Cell Distribution Width 12.5 Platelet Count 451 H Mean Platelet Volume 7.0 L Neutrophils (%) (Auto) 85.5 H Lymphocytes (%) (Auto) 9.0 L Monocytes (%) (Auto) 4.3 Eosinophils (%) (Auto) 0.7 Basophils (%) (Auto) 0.5 Neutrophils # (Auto) 14.7 H Lymphocytes # (Auto) 1.5 Monocytes # (Auto) 0.7 Eosinophils # (Auto) 0.1 Basophils # (Auto) 0.1 CBC Comment Sodium Level 135 Potassium Level 3.8 Chloride Level 100 Carbon Dioxide Level 26.2 Anion Gap 9 Blood Urea Nitrogen 7 Creatinine 0.90 Estimated GFR/1.73 m2 72 BUN/Creatinine Ratio 7.8 L Glucose Level 110 H Calcium Level 9.2 Albumin 3.4 Chemistry Comments EKG/XRAY/CT/US/VASC/MRI Chest X-Ray : Additional Comments Chest x-ray interpreted by myself today shows left lower lobe patchy opacity. There is no large effusion. Mediastinum is unremarkable. DIAGNOSTIC RADIOLOGY Patient: ZORAIDA GIBSON Medical Record: [id number] [facility] : 1990, Age: 34 Sex: Female Location: ER Patient Status: [facility] ER Service Date/Time: 11/17/241318 Ordering Physician: EVANGELINA BARNES MD Exam: CHEST,SINGLE VIEW CHEST RADIOGRAPH Indication: ro pna Technique: Single frontal view of the chest was obtained COMPARISON: DI CHEST,TWO VIEWS on DOS: 11/09/24 FINDINGS: Lines and Tubes: None Lungs: Patchy opacity in the left lower lobe. Pleura: No effusion. No pneumothorax. Cardiomediastinal contours: Unremarkable Bones: Unremarkable IMPRESSION: Patchy opacity in the left lower lobe. Electronically Signed by:COLLIN CORREIA MD Date & Time: 11/17/241326 Dictated by: COLLIN CORREIA MD Dictation date and time: 11/17/241326 Primary Care Provider: NO PRIMARY CARE PROVIDER cc: EVANGELINA BARNES MD ~ Medical Decision Making Findings 34-year-old female presents to the ED with a complaint ongoing bronchitis symptoms. She says that she was diagnosed with bronchitis one week ago and now believe has developed pneumonia. Patient states she has not been able to keep much food down over the last 5-6 days and states she has been able to stay hydrated that has had significant fever around 103-105 degrees F over the last week or so. She is very concerned about her illness mostly because she has a baby from the NICU coming home soon and also states she has another terminally ill child. Patient states she took Tylenol a 1000 mg 2 hours ago. She states she has been taking ibuprofen about 200-400 mg at a time. She states she feels body achy and feverish with cough and nausea. She has no other concern or complaint at this time. She denies any abdominal pain or diarrhea. Or chest pain or shortness of breath. Patient was given dose of ibuprofen 800 mg by mouth and Zofran 8 mg ODT along with azithromycin 500 mg by mouth in the ED today. Prescription of azithromycin for three more days sent to patient's pharmacy. Patient will follow up with primary care in 2-3 days if no better as needed sooner. Return to ED with any worsening tenderness of his symptoms. Patient will continue Tylenol and ibuprofen as needed for symptomatic relief. COVID and flu testing was performed in the ED today. Departure Disposition: HOME / SELF CARE / HOMELESS Impression: Primary Impression: Pneumonia Qualified Codes: J18.9 - Pneumonia, unspecified organism Condition: Stable Discharge Instructions: Community-Acquired Pneumonia, Adult, [id number] Additional Instructions: Patient was given dose of ibuprofen 800 mg by mouth and Zofran 8 mg ODT along with azithromycin 500 mg by mouth in the ED today. Prescription of azithromycin for three more days sent to patient's pharmacy. Patient will follow up with primary care in 2-3 days if no better as needed sooner. Return to ED with any worsening tenderness of his symptoms. Patient will continue Tylenol and ibuprofen as needed for symptomatic relief. COVID and flu testing was performed in the ED today. Referrals: NO PRIMARY CARE PROVIDER (PCP) Prescriptions Ibuprofen (Ibuprofen) 800 Mg Tablet 1 TAB PO Q8H for pain for 10 Days, #30 TAB 0 Refills Prov: JERRICA ENGEL 11/17/24 Azithromycin (Zithromax) 250 Mg Tablet 2 TAB PO DAILY for 3 Days, #6 TAB Prov: JERRICA ENGEL 11/17/24 Signature Scribe Signature: No scribe Attestation: No scribe EDELMIRA TRIVEDI NP Nov 17, 2024 13:10 JERRICA ENGEL Nov 17, 2024 15:31
--- NOTE | 2024-11-17 13:29 | RADIOLOGY REPORT ---
CHEST RADIOGRAPH Indication: ro pna Technique: Single frontal view of the chest was obtained COMPARISON: DI CHEST,TWO VIEWS on DOS: 11/09/24 FINDINGS: Lines and Tubes: None Lungs: Patchy opacity in the left lower lobe. Pleura: No effusion. No pneumothorax. Cardiomediastinal contours: Unremarkable Bones: Unremarkable IMPRESSION: Patchy opacity in the left lower lobe.
[2024-11-17] MEDS: ibuprofen tablet 400 MG TABLET PO STA (14:35)
[2024-11-17] MEDS: ondansetron 4mg rapidly disintigrating tab PO STA (14:35)
[2024-11-17 14:53] LABS: MEAN PLATELET VOLUME 7.0 FL (7.4-10.4); RED CELL DISTRIBUTION WIDTH 12.5 % (11.5-14.5)
[2024-11-17 15:03] LABS: CREATININE 0.90 MG/DL (0.40-0.90); TOTAL CARBON DIOXIDE 26.2 MMOL/L (24-32); eCRCL 55 ML/MIN; eGFR 72 ML/MIN
[2024-11-17] MEDS ORDERED: AZIT-164 PO (15:33)
[2024-11-17] MEDS ORDERED: IBUP-1986 PO (15:34)
[2024-11-17 15:41] VITALS: TEMP 97.8
[2024-11-17 16:13] VITALS: RESP 16
== END 2024-11-17 16:28 | disposition home or self-care (01) ==
LOC: ER 12:55
DX: J18.9 Pneumonia, unspecified organism (principal); F31.9 Bipolar disorder, unspecified; G43.909 Migraine, unspecified, not intractable, without status migrainosus; I25.2 Old myocardial infarction; Z91.040 Latex allergy status; Z88.8 Allergy status to other drugs, medicaments and biological substances; Z79.899 Other long term (current) drug therapy; Z72.89 Other problems related to lifestyle; Z20.822 Contact with and (suspected) exposure to COVID-19
CPT/HCPCS: 36415; 71045; 80048; 85025; 87811; 99284